=== PATIENT | male | born 1950 | race Caucasian/White ===

== ENCOUNTER 2024-01-12 11:48 | Emergency (ER) | payer MEDICARE, OTHER, SELFPAY ==
[2024-01-12 11:48] VITALS: BP 157/85; PULSE 68; RESP 16; TEMP 35.9; O2SAT 97
--- NOTE | 2024-01-12 12:28 | EKG12_ITS ---
Test Reason : CHEST PAIN Blood Pressure : / mmHG Vent. Rate : 068 BPM Atrial Rate : 068 BPM P-R Int : 186 ms QRS Dur : 100 ms QT Int : 416 ms P-R-T Axes : 050 011 045 degrees QTc Int : 442 ms Normal sinus rhythm Inferior infarct , age undetermined Abnormal ECG Confirmed by AUGUSTA BARRIOS, RADHA ([id number]), film editor MIRTA CORDOBA ([id number]) on 01/17/2024 5:55:17 AM Referred By: Confirmed By:RADHA DERAS MD
--- NOTE | 2024-01-12 12:28 | CT_ITS ---
STUDY: CT BRAIN WITHOUT CONTRAST REASON FOR EXAM: Male, 73 years old. Dizziness. Nausea and vomiting. RADIATION DOSAGE (If Supplied By Facility): CTDIvol = ( 47.06 ) mGy, DLP = ( 907.97 ) mGycm TECHNIQUE: Transaxial CT imaging of the brain was performed without administration of intravenous contrast material. Individualized dose optimization techniques were used for this CT. COMPARISON: No relevant priors. FINDINGS: Normal soft tissue structures. Normal calvarium. There is mild cerebral atrophy with widening of the extra-axial spaces and ventricular dilatation. Normal white matter tracts of the cerebral hemispheres. Normal basal ganglia and thalami. Normal brainstem. Normal cerebellum. There is no intracranial hemorrhage. There are no findings of an acute ischemic infarction. Normal visualized paranasal sinuses. CT/Brain/Head without Contrast IMPRESSION: Chronic involutional changes of the brain. Electronically Signed: Tone Augustin MD at 13:21 EDT ,
--- NOTE | 2024-01-12 12:29 | EDS_ITS ---
HPI <LYNNE Domingo - Last Filed: 01/12/24 14:17> History of Present Illness Chief Complaint: Nausea/Vomiting Narrative Narrative: Patient is a 73-year-old male with history of hypertension hyperlipidemia, GERD who presents to the emergency department 2 days of dizziness, nausea and vomiting. Talking with the patient, the patient states that he feels that he is on a ride, whenever he gets up and moves around he cannot walk because he is going back and forth in the hallway. Patient states whenever he gets up and moves he feels immediately nauseous and have some vomiting. He denies any chest pain, headache. Patient states this started 2 days ago when he was talking to a friend. He has no history of falling, no history of any TIA or CVA. Patient denies any specific pain however he does state he does feel sick to his stomach. Denies any recent antibiotic use, patient has no infectious complaints. [facility] <LYNNE Domingo - Last Filed: 01/12/24 14:17> [facility] Medical History (Updated 01/12/24 @ 14:15 by LYNNE Domingo) Hypercholesteremia Hypertension Home Medications ?Medication ?Instructions ?Recorded ?Last Taken ?Type diazepam 5 mg tablet (Valium) 5 mg PO BID PRN dizziness or 01/12/24 Unknown Rx vertigo 3 days #7 tabs meclizine 25 mg tablet 25 mg PO 4X/DAY PRN PRN Dizziness 01/12/24 Unknown Rx #20 tabs ondansetron 4 mg disintegrating 4 mg PO Q8H PRN PRN Nausea #10 tabs 01/12/24 Unknown Rx tablet Allergy/AdvReac Type Severity Reaction Status Date / Time barley Allergy Severe Anaphylaxis Verified 01/12/24 11:51 Social History Smoking Status: Never smoker ROS <LYNNE Domingo - Last Filed: 01/12/24 14:17> ROS ED ROS Narrative Constitutional: Negative for fever, chills, weight loss, weakness Eyes: Negative for vision loss, vision change, double vision ENT: Negative for any sore throat, ear pain, congestion Cardiovascular: Negative for any chest pain, tightness, palpitations Respiratory: Negative for any cough, sputum production, hemoptysis, dyspnea, dyspnea on exertion, orthopnea Gastrointestinal: Negative for any abdominal pain, diarrhea, constipation, blood in stool, blood in vomit. Positive for nausea and vomiting : Negative for any urinary frequency, dysuria, retention, blood in urine Muscle skeletal: Negative for any neck pain, back pain Neurological: Negative for any headache, syncope. Positive for feeling of dizziness, feeling unsteadiness. Skin: Negative for any rashes, itching, abrasions, lacerations Psychiatric: Negative for any depression, anxiety, stress, suicidal ideation, homicidal ideation Hematologic: Negative for any excessive bruising, easy bleeding EXAM <LYNNE Domingo - Last Filed: 01/12/24 14:17> Physical Exam Narrative Exam Narrative: Vital signs reviewed. HEET: Head normocephalic atraumatic, TMs clear bilaterally. Posterior pharynx is clear, moist mucous membranes. Nares clear bilaterally. Pupils are equal round reactive to light. During EOMs, patient does have some horizontal nystagmus when looking to the right. Neck: Supple with no lymphadenopathy or tenderness. No signs of meningismus. Cardiac: Regular rate and rhythm no murmurs gallops or rubs, equal peripheral pulses bilaterally. Respiratory: Lungs clear to auscultation bilaterally. No chest tenderness. Abdomen: Soft, nontender, nondistended. No abdominal bruit or pulsatile masses. No hepatosplenomegaly Extremities: No peripheral edema, no signs of gross trauma or deformity. Active full range of motion of all extremities. Neuro: Cranial nerves II through XII intact, no focal neurological deficits. NIH stroke scale 0. Patient did have a positive Uriel-Hallpike which did elicit dizziness as well as some nausea. I was able to get the patient up however he was very unsteady, felt that he was on a ride and could not steady himself. He denied feelings of any lightheadedness or near syncope. Skin: Clean dry and intact with no rash, purpura, petechiae, vesicles or pustules. Backs/flank: No CVA tenderness, no midline spinal tenderness, no deformity. Psych: Normal mood and affect. No SI, HI or acute psychosis. Const Vital Signs: 01/12/24 11:48 01/12/24 14:23 Temperature 96.7 F L 98.7 F Temperature Source Temporal Pulse Rate 68 85 Respiratory Rate 16 18 Blood Pressure 157/85 H 117/62 Blood Pressure Mean 109 80 Pulse Ox 97 98 Oxygen Delivery Method Room Air <Dr. Yo Ragsdale MD - Last Filed: 01/12/24 21:53> Physical Exam Const Vital Signs: 01/12/24 11:48 01/12/24 14:23 Temperature 96.7 F L 98.7 F Temperature Source Temporal Pulse Rate 68 85 Respiratory Rate 16 18 Blood Pressure 157/85 H 117/62 Blood Pressure Mean 109 80 Pulse Ox 97 98 Oxygen Delivery Method Room Air MDM <LYNNE Domingo - Last Filed: 01/12/24 14:17> MDM Lab Data Labs: Laboratory Results - last 24 hr 01/12/24 12:48 WBC 6.7 RBC 6.33 H Hgb 18.3 H* Hct 54.2 H MCV 85.6 MCH 28.9 MCHC 33.8 RDW Std Deviation 39.4 RDW Coeff of Kyle 12.8 Plt Count 207 MPV 9.6 Immature Gran % (Auto) 0.400 Neut % (Auto) 74.6 H Lymph % (Auto) 18.4 L Mclean % (Auto) 5.6 Eos % (Auto) 0.3 Baso % (Auto) 0.7 Absolute Neuts (auto) 5.0 Absolute Lymphs (auto) 1.24 Nucleated RBC % 0 Diff Path Review May foll Sodium 136 Potassium 4.1 Chloride 104 Carbon Dioxide 26.0 Anion Gap 6 BUN 16 Creatinine 1.17 Est GFR (MDRD) Af Amer 79 Est GFR (MDRD) Non-Af 65 BUN/Creatinine Ratio 13.7 Glucose 114 H Calcium 9.0 Radiography Diagnostic Testing: Clinical Impression(s) from Imaging Studies Brain CT 01/12/24 12:28 IMPRESSION: Chronic involutional changes of the brain. Electronically Signed: Tone Augustin MD at 13:21 EDT , EKG Normal sinus rhythm: Attestation: I personally reviewed and interpreted this EKG as follows: Interpretation: Sinus Rhythm Comments: Normal sinus rhythm, rate of 60 bpm, PA 186 ms, QRS duration 100 ms, no acute ST elevation, no acute infarct noted. Treatment and Re-Evaluation :: Differential diagnosis includes however is not limited to: Posterior CVA, benign positional peripheral vertigo, brain mass, electrolyte abnormality, arrhythmia Patient appears to be in no obvious respiratory distress vital signs are stable, nontoxic-appearing. Presenting to the emergency department with complaints of dizziness, unsteadiness for the last 2 days. Physical examination is consistent with more of a vertiginous episode, patient has no evidence to suspect any near syncope or syncope. Patient will receive a neurological exam with basic labo ratory values, EKG as well as a CT scan of the brain. Patient will receive IV fluids, Zofran, Valium for his symptoms. Patient be reevaluated. All radiologic examinations were read, reviewed by the emergency department attending. From these reads, a plan of care will be put in place. Patient laboratory values show slight hemoconcentration with a hemoglobin of 18.3, hematocrit 54.2, patient's chemistries were unremarkable. Patient EKG was unremarkable, CT scan of the brain shows chronic involutional changes of brain, no acute process. Patient did have some relief with the medication. On reevaluation, patient still had some ataxic gait. I offered the patient admission, this will be for MRI to rule out any posterior stroke, however patient and preferred to do this as outpatient. He will follow-up with his PCP. This has been going on for greater than 48 hours. Patient instructed to come here for worsening symptoms. He will try to follow-up outpatient. All questions answered, stable for discharge. Patient will be treated with meclizine, Valium as well as Zofran for home. <Dr. Yo Ragsdale MD - Last Filed: 01/12/24 21:53> [facility] Narrative Medical decision making narrative: I have personally performed a face to face assessment of the patient and have reviewed the ERIC Note. I performed a substantive portion of the visit including all aspects of the following. My dumont findings include: History is 3 days of intermittent symptoms of vertigo that are triggered when he changes position and turns his head, especially when he gets up from a lying down position. Associated with nausea and vomiting. No tinnitus, earache, headache, changes in vision, except for some trouble focusing when he is very vertiginous. He has had some ataxia with this. He states he had an ear infection in the past and it felt similar. Exam is positive [place]-Hallpike. No pathologic nystagmus. Normal [id number] and [id number] bilaterally. Normal neurologic exam otherwise. Normal speech. Medical Decison Making workup unremarkable including CT, I reviewed the imaging and the report which I agree with. After Valium he is improved, but he still has some ataxia. Offered admission, discussed the possibility of central etiology which is less likely but not able to be ruled out even with a plain CT, they understand this but declined, would prefer to do supportive care and follow-up. Prescriptions written. Other additions or changes: [None] Lab Data Labs: Laboratory Results - last 24 hr 01/12/24 12:48 WBC 6.7 RBC 6.33 H Hgb 18.3 H* Hct 54.2 H MCV 85.6 MCH 28.9 MCHC 33.8 RDW Std Deviation 39.4 RDW Coeff of Kyle 12.8 Plt Count 207 MPV 9.6 Immature Gran % (Auto) 0.400 Neut % (Auto) 74.6 H Lymph % (Auto) 18.4 L Mclean % (Auto) 5.6 Eos % (Auto) 0.3 Baso % (Auto) 0.7 Absolute Neuts (auto) 5.0 Absolute Lymphs (auto) 1.24 Nucleated RBC % 0 [address] Review May foll Sodium 136 Potassium 4.1 Chloride 104 Carbon Dioxide 26.0 Anion Gap 6 BUN 16 Creatinine 1.17 Est GFR (MDRD) Af Amer 79 Est GFR (MDRD) Non-Af 65 BUN/Creatinine Ratio 13.7 Glucose 114 H Calcium 9.0 Radiography Diagnostic Testing: Clinical Impression(s) from Imaging Studies Brain CT 01/12/24 12:28 IMPRESSION: Chronic involutional changes of the brain. Electronically Signed: Tone Augustin MD at 13:21 EDT , EKG Normal sinus rhythm: Attestation: I personally reviewed and interpreted this EKG as follows: (Interpreted by myself as well, Dr. Ragsdale) Discharge Plan Triage Chief Complaint: Nausea/Vomiting ED Midlevel Provider: Pedro Torres ED Provider: Yo Ragsdale Dx/Rx/DC Orders Clinical Impression: Vertigo Instructions: ED Dizziness, Uncertain Cause, ED Vertigo, Unspecified Prescriptions: New diazepam [Valium] 5 mg tablet 5 mg PO BID PRN (Reason: dizziness or vertigo) 3 Days Qty: 7 0RF meclizine 25 mg tablet 25 mg PO 4X/DAY PRN PRN (Reason: Dizziness) Qty: 20 0RF ondansetron 4 mg tablet,disintegrating 4 mg PO Q8H PRN PRN (Reason: Nausea) Qty: 10 0RF Primary Care Provider: Linda Barfield NP Referrals: Linda Barfield NP, PEN OR PENCIL ASSEMBLY MACHINE OPERATOR-C [Primary Care Provider] - Activity Restrictions/Additional Instructions: You need to follow-up outpatient. If this persist she will need an MRI. Take the Valium only for severe dizziness, for normal dizziness take the meclizine as well as the nausea medicine. Return here for worsening symptoms. Print Language: Liberian Disposition Disposition: Home, Self Care Discharge Date/Time: 01/12/24 14:25
[2024-01-12] MEDS: 0.9% Normal Saline (1000mL) 1,000 ML 999 ML IV (12:51)
[2024-01-12] MEDS: diazePAM 5 MG Tablet PO (12:51)
[2024-01-12] MEDS: Ondansetron 4 MG/2 ML Vial IV (12:51)
--- NOTE | 2024-01-12 12:56 | ED.RN ---
patient c/o severe dizziness since Tuesday. patient states he is off balance when he walks and has to use a walker so he doesn't fall. also c/o of photophobia
[2024-01-12 13:12] LABS: Absolute Lymphocyte Count 1.24 X10^3/uL (0.83-4.51); Basophil# 0.05 X10^3/uL; Basophil% 0.7 % (0-1); Eosinophil# 0.02 X10^3/uL; Eosinophils% 0.3 % (0-5); Hematocrit 54.2 % (40-54); Lymphocyte # 1.24 X10^3/ul (0.83-4.51); Lymphocyte % 18.4 % (19-41); Mean Corp Hgb Conc 33.8 g/dL (32-36); Mean Corpuscular Hgb 28.9 pg (27.0-32.0); Mean Corpuscular Volume 85.6 fL (80-94); Mean Platelet Vol. 9.6 fl (6.2-12.0); Monocyte# 0.38 X10^3/uL; Monocyte% 5.6 % (0-10); NRBC Flagged by Analyzer 0 % (0-5); Neutrophil # 5.01 X10^3/uL (2.7-7.7); Neutrophil % 74.6 % (47-70); Platelet Count 207 K/mm3 (150-450); RBC Distribution Width CV 12.8 % (11.6-14.6); RBC Distribution Width SD 39.4 fl (35.1-43.9); Red Blood Count 6.33 M/mm3 (4.6-6.2); White Blood Count 6.7 K/mm3 (4.4-11.0)
[2024-01-12 13:15] LABS: Hemoglobin 18.3 g/dL (13.0-16.5)
[2024-01-12 13:23] LABS: Anion Gap 6 (5-15); BUN 16 mg/dL (7-18); BUN/Creat Ratio 13.7 RATIO (10-20); Chloride 104 mmol/L (98-107); Creatinine, Serum 1.17 mg/dL (0.70-1.30); EST Glomerular Filtration Rate 65 mL/min (>60); Est Glom Filt Rate - Afr Amer 79 mL/min (>60); Glucose 114 mg/dL (74-106); Potassium 4.1 mmol/L (3.5-5.1); Sodium Level 136 mmol/L (136-145)
[2024-01-12 14:23] VITALS: BP 117/62; PULSE 85; RESP 18; TEMP 37.1; O2SAT 98
[2024-01-13 13:48] LABS: Pathologist Review Reviewed
== END 2024-01-12 14:25 | disposition home or self-care (01) ==
PROVIDERS: Nurse Practitioner; Emergency Provider Emergency Medicine; PCP Nurse Practitioner; Visit Provider Emergency Medicine
DX: R42 Dizziness and giddiness (principal); I10 Essential (primary) hypertension; E78.00 Pure hypercholesterolemia, unspecified; K21.9 Gastro-esophageal reflux disease without esophagitis
CPT/HCPCS: 70450; 80048; 85025; 93005; 96361; 96374; 99283; J7030; A4216; J2405

== ENCOUNTER 2024-09-21 11:53 | Emergency (ER) | payer MEDICARE, OTHER, SELFPAY ==
[2024-09-21] VITALS (7 sets, daily range): BP systolic 142–183; BP diastolic 75–88; PULSE 69–103; RESP 16–20; TEMP 36.7; O2SAT 92–97; BMI 28.3
--- NOTE | 2024-09-21 12:41 | EKG12_ITS ---
Test Reason : CP Blood Pressure : */* mmHG Vent. Rate : 87 BPM Atrial Rate : 87 BPM P-R Int : 176 ms QRS Dur : 94 ms QT Int : 366 ms P-R-T Axes : 53 5 74 degrees QTcB Int : 440 ms Normal sinus rhythm Normal ECG Confirmed by Milad Grant ([id number]), book or script editor MIRTA CORDOBA ([id number]) on 09/24/2024 10:46:33 AM Referred By: Confirmed By: Milad Grant
--- NOTE | 2024-09-21 13:00 | RAD_ITS ---
PROCEDURE: CHEST PA AND LATERAL REASON FOR EXAM: Chest tightness and chest pain. TECHNIQUE: Frontal and lateral views of the chest. COMPARISON: None. FINDINGS: EKG electrodes are seen. The lungs are clear. The heart is not enlarged. Mild degree of degenerative changes of the thoracic vertebrae. RAD/Chest PA and Lateral IMPRESSION: No acute abnormality is seen. Reading Location: [id number]
[2024-09-21 13:31] LABS: Anion Gap 14 (5-15); BUN 12 mg/dL (4-19); BUN/Creat Ratio 11.3 RATIO (10-20); Calcium 9.2 mg/dL (7.6-11.0); Carbon Dioxide 23.5 mmol/L (22.0-29.0); Chloride 99 mmol/L (96-108); Creatinine, Serum 1.09 mg/dL (0.70-1.20); EST Glomerular Filtration Rate 72 (>60); Estimated Creatinine Clearance 66.94 ml/min; Glucose 109 mg/dL (70-99); Potassium 3.7 mmol/L (3.3-5.1); Sodium Level 137 mmol/L (133-145); Troponin T High Sensitivity 6 ng/L (<=22)
[2024-09-21 13:43] LABS: Absolute Lymphocyte Count 1.58 X10^3/uL (0.83-4.51); Absolute Neutrophil Count 3.7 X10^3/uL (2.0-7.7); Basophil# 0.04 X10^3/uL; Basophil% 0.7 % (0-1); Eosinophil# 0.08 X10^3/uL; Eosinophils% 1.3 % (0-5); Hematocrit 53.9 % (40-54); Lymphocyte # 1.58 X10^3/ul (0.83-4.51); Lymphocyte % 26.6 % (19-41); Mean Corp Hgb Conc 34.3 g/dL (32-36); Mean Corpuscular Hgb 29.3 pg (27.0-32.0); Mean Corpuscular Volume 85.4 fL (80-94); Mean Platelet Vol. 9.8 fl (6.2-12.0); Monocyte# 0.54 X10^3/uL; Monocyte% 9.1 % (0-10); NRBC Flagged by Analyzer 0 % (0-5); Neutrophil # 3.68 X10^3/uL (2.7-7.7); Neutrophil % 61.8 % (47-70); Platelet Count 199 K/mm3 (150-450); RBC Distribution Width CV 12.6 % (11.6-14.6); RBC Distribution Width SD 39.1 fl (35.1-43.9); Red Blood Count 6.31 M/mm3 (4.6-6.2)
[2024-09-21 13:58] LABS: Differential Indicated SCAN CRITERIA MET; Hemoglobin 18.5 g/dL (13.0-16.5)
--- NOTE | 2024-09-21 14:42 | ED.VIS.CHEST ---
HPI History of Present Illness Chief Complaint: Chest Pain Narrative Narrative: Patient is a 74-year-old male with past medical history hypertension hypercholesterolemia who presents to the emergency department the chief complaint of chest pain. Patient states that he has had chest pain on and off since . He states that last night he woke up out of his sleep with chest discomfort and was noted to be sweaty. He states that the pain does not radiate anywhere is on the left side of his chest. Patient denies any recent travel history denies any history of blood clots. Patient states that when he is up moving around he has no pain with exertion he states that when he is out with his friends he does not have any chest pain or discomfort. He states that his symptoms are mainly when he is sitting and relaxing [facility] Medical History Hypercholesteremia Hypertension Home Medications ?Medication ?Instructions ?Recorded ?Last Taken ?Type diazepam 5 mg tablet (Valium) 5 mg PO BID PRN dizziness or 01/12/24 Unknown Rx vertigo 3 days #7 tabs meclizine 25 mg tablet 25 mg PO 4X/DAY PRN PRN Dizziness 01/12/24 Unknown Rx #20 tabs ondansetron 4 mg disintegrating 4 mg PO Q8H PRN PRN Nausea #10 tabs 01/12/24 Unknown Rx tablet Allergy/AdvReac Type Severity Reaction Status Date / Time barley Allergy Severe Anaphylaxis Verified 09/21/24 11:59 Social History Smoking Status: Never smoker ROS ROS ED ROS Narrative Constitutional: Denies fevers, chills, headaches, lightness, dizziness Eyes: Denies change in vision double vision blurry vision Cardiovascular: Complains of chest pain as noted above denies palpitations Respiratory: Denies coughing wheezing shortness of breath Abdomen: Denies abdominal pain nausea vomit diarrhea : Denies any urinary symptoms Neurological: Denies numbness, weakness, tingling Musculoskeletal: Denies back pain Skin: Denies rashes or lesions EXAM Physical Exam Narrative Exam Narrative: General: Patient was lying in bed rest comfortably did not appear to be in acute distress Head: Atraumatic, normocephalic Eyes: PERRL bilateral, EOMI bilateral, no conjunctival injection noted Neck: Soft, supple, trachea midline Cardiovascular: Patient tachycardic with a regular rhythm no murmurs gallops rubs noted Respiratory: Clear to auscultation bilaterally Abdomen: Soft, nondistended, nontender to palpation Extremities: +5/5 strength noted in the bilateral upper and lower extremities, radial pulses +2/4 in the bilateral extremities, no pedal edema exam Neurological: Patient following commands knew that he was at [facility] year is 2024 Skin: Warm, dry, intact no rashes or lesions noted Const Vital Signs: 09/21/24 11:54 09/21/24 12:23 09/21/24 12:31 Temperature 98.1 F Temperature Source Oral Pulse Rate 103 H 84 Respiratory Rate 18 16 Respiratory Effort Normal Blood Pressure 183/76 H 157/88 H Blood Pressure Mean 111 111 Pulse Ox 96 95 Oxygen Delivery Method Room Air Room Air 09/21/24 12:41 09/21/24 13:00 09/21/24 14:00 Temperature Temperature Source Pulse Rate 86 86 Respiratory Rate 16 20 H Respiratory Effort Blood Pressure 147/80 H 142/78 H Blood Pressure Mean 102 99 Pulse Ox 97 93 92 Oxygen Delivery Method Room Air Room Air Room Air 09/21/24 15:16 Temperature Temperature Source Pulse Rate 81 Respiratory Rate 18 Respiratory Effort Blood Pressure 149/75 H Blood Pressure Mean 99 Pulse Ox 93 Oxygen Delivery Method Room Air MDM MDM MDM Narrative Medical decision making narrative: Patient is a 74-year-old male who presented to the emergency department the chief complaint of chest pain. On the differential diagnose includes Melamin to ACS, pneumonia, pneumothorax, electrolyte abnormality. Once workup is obtained reviewed he will be reevaluated. Insert patient CBC reviewed and showed no evidence leukocytosis white blood count normal at 6, hemoglobin is 18.5, platelet count was noted be 199. Patient sodium noted be normal 137, potassium was 3.7, creatinine normal at 1.09. Patient's troponin was noted to be 6 with a delta troponin obtained at least 7. Patient's EKG reviewed and independently interpreted by myself as well as compared to previous EKG which showed sinus rhythm rate of 87 bpm was largely unchanged. Patient's chest x-ray reviewed by myself by radiology showed no acute cardiopulmonary processes. Discussed case with on-call healthcare administration intern Dr. Grant who states that he does not believe that this is cardiac in nature and agrees since his symptoms not worsen with exertion and is more or less when he is sitting relaxing and has been going on and off since . He was advised to follow-up with his primary care physician in the outpatient setting otherwise he is to return for worsening symptoms or concerns. Patient and significant other at bedside agreeable this plan all question concerns answered he was discharged home in stable condition. Lab Data Labs: Laboratory Results - last 24 hr 09/21/24 09/21/24 12:35 14:52 WBC 6.0 RBC 6.31 H Hgb 18.5 H* Hct 53.9 MCV 85.4 MCH 29.3 MCHC 34.3 RDW Std Deviation 39.1 RDW Coeff of Kyle 12.6 Plt Count 199 MPV 9.8 Immature Gran % (Auto) 0.500 Neut % (Auto) 61.8 Lymph % (Auto) 26.6 Richardson % (Auto) 9.1 Eos % (Auto) 1.3 Baso % (Auto) 0.7 Absolute Neuts (auto) 3.7 Absolute Lymphs (auto) 1.58 Nucleated RBC % 0 Diff Path Review May foll Platelet Estimate A Sodium 137 Potassium 3.7 Chloride Direct 99 Carbon Dioxide 23.5 Anion Gap 14 BUN 12 Creatinine 1.09 Estim Creat Clear Calc 66.94 Est GFR (MDRD) Non-Af 72 BUN/Creatinine Ratio 11.3 Glucose 109 H Calcium 9.2 Troponin T High Sens 6 Troponin T Hi Sens 2 Hr 7 Troponin T Hi Sens 2Hr Delta 0 Radiography Diagnostic Testing: Clinical Impression(s) from Imaging Studies Chest X-Ray 09/21/24 13:00 IMPRESSION: No acute abnormality is seen. Reading Location: [id number] Discharge Plan Triage Chief Complaint: Chest Pain ED Provider: Stu Soliman Dx/Rx/DC Orders Clinical Impression: Chest pain Prescriptions: No Action diazepam [Valium] 5 mg tablet 5 mg PO BID PRN (Reason: dizziness or vertigo) 3 Days Qty: 7 0RF meclizine 25 mg tablet 25 mg PO 4X/DAY PRN PRN (Reason: Dizziness) Qty: 20 0RF ondansetron 4 mg tablet,disintegrating 4 mg PO Q8H PRN PRN (Reason: Nausea) Qty: 10 0RF Primary Care Provider: Linda Barfield NP Referrals: Linda Barfield NP, SCHEDULE ANNOUNCER-C [Primary Care Provider] - Activity Restrictions/Additional Instructions: Follow-up with your doctor in outpatient setting. Return for worsening symptoms or concerns. Your heart enzymes were normal today your EKG was normal and your chest x-ray did not show any evidence of pneumonia. Print Language: Afghan Disposition Disposition: Home, Self Care
[2024-09-21 15:06] LABS: Pathologist Review May foll; Platelet Estimate A (ADEQ)
[2024-09-21 15:14] LABS: TROPONIN VARIANCE 2 HR 0; Troponin T High Sens 2 HR 7 ng/L (<=22)
== END 2024-09-21 15:28 | disposition home or self-care (01) ==
PROVIDERS: Emergency Provider Emergency Medicine; PCP Nurse Practitioner; Visit Provider Emergency Medicine
DX: R07.9 Chest pain, unspecified (principal); E78.00 Pure hypercholesterolemia, unspecified; I10 Essential (primary) hypertension
CPT/HCPCS: 71046; 80048; 84484; 85025; 93005; 99284; A4216